=== PATIENT | male | born 1995 | race Hispanic/Latino ===

== ENCOUNTER 2021-08-25 13:19 | Emergency (ER) | payer BC ==
[~2021-08-25] VITALS: Ht 177.8 cm; Wt 122.5 kg
[2021-08-25] MEDS ORDERED: SOTROVIMAB 500 MG in SODIUM CHLORIDE 0.9% 100 ML IV ONE (13:45)
[2021-08-25] MEDS ORDERED: SODIUM CHLORIDE 0.9% 100 ML ONE (14:10)
== END 2021-08-25 14:35 | disposition home or self-care (01) ==
LOC: FSED 13:26
DX: U07.1 COVID-19 (principal); E66.01 Morbid (severe) obesity due to excess calories; I10 Essential (primary) hypertension
CPT/HCPCS: 99283; J7050